=== PATIENT | female | born 1945 | race Caucasian/White ===

== ENCOUNTER 2022-01-06 18:46 | Emergency (ER) | payer SELFPAY ==
[~2022-01-06] VITALS: Ht 162.6 cm; Wt 73.0 kg
[2022-01-07] MEDS ORDERED: ONDANSETRON HCL 4MG/2ML INJ IV STA (00:50)
[2022-01-07] MEDS ORDERED: MORPHINE SULFATE 4 MG/ML CPJ (NOT FOR IM USE) IV STA (00:50)
[2022-01-07 01:11] LABS: CLARITY URINE CLEAR (CLEAR); COLOR URINE RED (YELLOW); KETONES URINE NEGATIVE (NEGATIVE); LEUKOCYTE ESTERASE URINE TRACE (NEGATIVE); NITRITE URINE NEGATIVE (NEGATIVE); OCCULT BLOOD URINE 3+ (NEGATIVE); PROTEIN URINE 2+ (NEGATIVE); SPECIFIC GRAVITY URINE 1.006 (1.005-1.030); UROBILINOGEN URINE 0.2 E.U./dL (0.2-1.0)
[2022-01-07] MEDS: METOPROLOL TARTRATE 5MG/5ML VIAL IV SCH ×3 (01:15→03:42)
[2022-01-07 01:25] LABS: BASOPHILS % 0.5 % (0.0-2.0); EOSINOPHILS % 0.9 % (0.0-5.0); HEMOGLOBIN. 15.9 g/dL (12.0-16.0); LYMPHOCYTES % 28.5 % (20.0-50.0); MEAN CORPUSCULAR HEMOGLOBIN 29.2 pg (28.0-32.0); MEAN CORPUSCULAR VOLUME 90.1 fL (81.0-99.0); MEAN PLATELET VOLUME 10.8 fl (7.4-10.4); MONOCYTES % 6.7 % (2.0-8.0); NEUTROPHILS % 63.4 % (40.0-76.0); PLATELET 192 x1000/uL (130-400); RED BLOOD CELL COUNT 5.44 mill/uL (4.2-5.4); RED CELL DISTRIBUTION WIDTH 13.3 % (11.6-14.6)
[2022-01-07 01:30] LABS: CHLORIDE 104 mEq/L (98-107)
[2022-01-07 02:23] LABS: INR 1.2; PROTHROMBIN TIME 12.5 sec (9.6-11.0)
[2022-01-07] MEDS ORDERED: CEPH500C2 MT (05:24)
[2022-01-07] MEDS ORDERED: TOPUD MT (05:24)
[2022-01-07 05:54] VITALS: BP 145/82
== END 2022-01-07 06:25 | disposition home or self-care (01) ==
LOC: ER 18:46
DX: N30.91 Cystitis, unspecified with hematuria (principal); D68.9 Coagulation defect, unspecified; I10 Essential (primary) hypertension; I49.9 Cardiac arrhythmia, unspecified; Z90.710 Acquired absence of both cervix and uterus
CPT/HCPCS: 36415; 70450; 74176; 80053; 81003; 83880; 84484; 85025; 85610; 86850; 86900; 86901; 96374; 96375; 99285; J2270; J2405; J3490